=== PATIENT | female | born 2005 | race Caucasian/White ===

== ENCOUNTER 2023-01-08 22:52 | Emergency (ER) | payer BC ==
[2023-01-08] MEDS ORDERED: Ibuprofen 200 MG TAB ONE (23:06)
[2023-01-09 00:26] LABS: #Lymphocytes 0.7 thou/uL (1.20-3.40); #Monocytes 0.5 thou/uL (0.11-0.59); #Neutrophils 6.4 thou/uL (1.40-6.50); %Basophils 0.6 % (0.0-1.0); %Eosinophils 0.1 % (0.0-10.0); %Lymphocytes 9.4 % (28.0-48.0); %Neutrophils 82.9 % (31.0-61.0); Hemoglobin 11.2 g/dL (12.0-16.0); Mean Corpuscular Hemoglobin 28.7 pg (25.0-35.0); Mean Platelet Volume 8.3 fL (7.4-10.4); Platelet Count 140 10x3/uL (130-400); RBC Distribution Width 11.8 % (11.5-14.5); Red Blood Cell (RBC) Count 3.88 mill/uL (4.00-5.20); White Blood Cell (WBC) Count 7.7 10x3/uL (4.8-10.8)
[2023-01-09] MEDS ORDERED: traMADol HCl 50 MG TAB ONE (00:32)
[2023-01-09 00:37] LABS: ALT (SGPT) 22 U/L (8-55); AST (SGOT) 21 U/L (5-30); Albumin 4.2 g/dL (3.5-5.0); Alkaline Phosphatase 60 U/L (40-100); BUN (Urea Nitrogen) 12 mg/dL (8.4-21.0); Bilirubin, Total 1.2 mg/dL (0.2-1.2); Calc. Creatinine Clearance 0 mL/min (70-130); Calcium 9.1 mg/dL (7.8-10.44); Chloride 102 mmol/L (98-107); Estimated GFR 116; Globulin 3.2 g/dL (2.4-3.5); Glucose 81 mg/dL (70-105); Potassium 3.7 mmol/L (3.5-5.1); Protein, Total 7.4 g/dL (6.0-8.3); Sodium 133 mmol/L (136-145)
[2023-01-09 00:50] LABS: Carbon Dioxide 18 mmol/L (22-29)
[2023-01-09 01:02] LABS: Bilirubin Moderate (Negative); Blood, Urine Trace (Negative); Clarity Clear (Clear); Glucose, Urine (Dipstick) Negative (Negative); Ketone, Urine > or equal to 80 mg/dL (Negative); Leukocyte Negative (Negative); Nitrite Negative (Negative); Protein, Urine (Dipstick) 30 mg/dL (Neg-Trace)
[2023-01-09 01:05] LABS: Anion Gap 1 mmol/L (10-20)
[2023-01-09 01:07] LABS: SARS-CoV-2 NAA Rapid Test DETECTED (NotDetected)
[2023-01-09 01:08] LABS: Bacteria/HPF Rare-Few HPF (None Seen); Mucous/LPF 1+ LPF (<2+); RBC/HPF 0-3 HPF (0-3); Specific Gravity, Urine 1.032 (1.002-1.036); Squamous Epithelial 0-3 HPF (0-3); WBC/HPF 0-3 HPF (0-3)
[2023-01-09 01:09] LABS: Pregnancy Test - Urine (BHCG) Negative (Negative); Pregu Control Background? CLEAR/WHITE (CLR/WHITE); Pregu Control Bar Appear? YES (CONTROL BAR); Specific Gravity 1.032 (1.002-1.036)
[2023-01-09 15:03] LABS: MONO NEGATIVE CONTROL ZONE White (Negative) (White); MONO POSITIVE CONTROL Pink Line (Positive) (PINK/RED); Mononucleosis NEGATIVE (NEGATIVE)
== END 2023-01-09 01:43 | disposition home or self-care (01) ==
LOC: NAV ERS 22:52
DX: U07.1 COVID-19 (principal)
CPT/HCPCS: 80053; 81003; 81015; 81025; 85025; 86140; 86308; 87081; 87430; 87804; 99283; U0002